=== PATIENT | female | born 1995 | race African-American/Black ===

== ENCOUNTER 2019-08-08 12:19 | Emergency (ER) | payer OTHER, SELFPAY ==
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
[2019-08-08 12:22] VITALS: BP 119/60; PULSE 90; RESP 20; TEMP 36.7; O2SAT 100
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
[2019-08-08] MEDS: KETOROLAC (*BKC) 60 MG/2 ML VIAL IM (13:07)
== END 2019-08-08 13:45 | disposition home or self-care (01) ==
PROVIDERS: Emergency Provider Emergency Medicine
DX: S16.1XXA Strain of muscle, fascia and tendon at neck level, initial encounter (principal); V49.40XA Driver injured in collision with unspecified motor vehicles in traffic accident, initial encounter
CPT/HCPCS: 72125; 96372; 99284; J1885

== ENCOUNTER 2019-10-23 21:24 | Emergency (ER) | payer SELFPAY ==
[2019-10-23 22:03] VITALS: BP 158/92; PULSE 92; RESP 20; TEMP 36.4; O2SAT 97
--- NOTE | 2019-10-24 00:02 | PC.NURSE ---
PT STATES TO THIS INTAKE NURSE THAT SHE IS LEAVING AND WILL JUST CALL HER DOCTOR IN THE MORNING. PT VISUALIZED AMBULATE OUT ED DOORS TO PARKING LOT WITH STEADY GAIT.
== END 2019-10-24 00:02 | disposition left against medical advice (07) ==
DX: N93.9 Abnormal uterine and vaginal bleeding, unspecified (principal)
CPT/HCPCS: 99199

== ENCOUNTER 2019-11-06 15:01 | Emergency (ER) | payer OTHER, SELFPAY ==
--- NOTE | ~2019-11-06 | US_ITS ---
EXAMINATION: US OB limited DATE: 11/06/2019 16:05 INDICATION: Vaginal bleeding during early second trimester of TECHNIQUE: Real-time ultrasound of the pelvis was performed. The interpreting radiologist was not pre sent for the study. COMPARISON: None. FINDINGS: There is a single living fetus in breech presentation. The placenta is anterior with 7 mm anechoic l ikely placental rick. There is a thickened heterogeneously hypoechoic region along the inferior abhi n of the placenta suspicious for subchorionic hematoma. heart rate is 142 beats per minute (bpm ). The amniotic fluid is subjectively normal. IMPRESSION: 1. Single living fetus in breech presentation with heart rate of 142 bpm. 2. Uterus along the inferior margin of the anterior placenta appears thickened and heterogeneously hy poechoic suspicious for subchorionic hematoma. Reviewed, dictated and finalized at location A. IMPRESSION: 1. Single living fetus in breech presentation with heart rate of 142 bpm. 2. Uterus along the inferior margin of the anterior placenta appears thickened and heterogeneously hypoechoic suspicious for subchorionic hematoma.
[2019-11-06 15:09] VITALS: BP 103/81; PULSE 78; RESP 20; TEMP 35.8; O2SAT 100
[2019-11-06 15:40] VITALS: BP 114/70; PULSE 72
[2019-11-06 15:42] VITALS: BP 127/86; PULSE 92
[2019-11-06 15:43] VITALS: BP 124/81; PULSE 103
--- NOTE | 2019-11-06 15:45 | PC.NURSE ---
Pt to US via w/c.
[2019-11-06 15:53] LABS: Basophils Percent Auto 0.2 % (0.2-1.2); Eosinophils Absolute Auto 0.3 K/mm3 (0-0.3); Eosinophils Percent Auto 1.6 % (0-4.4); Hematocrit 39.6 % (37.0-47.0); Hemoglobin 13.6 g/dL (12.0-15.0); Immature Granulocyte Absolute 0.06 K/mm3 (0.00-0.031); Immature Granulocyte Percent A 0.4 % (0-0.5); Lymphocytes Absolute Auto 2.49 K/mm3 (0.9-3.2); Lymphocytes Percent Auto 16.3 % (18.3-44.2); Mean Corpuscular HGB Conc 34.3 g/dl (32-36); Mean Corpuscular Hemoglobin 30.4 pg (26-34); Mean Corpuscular Volume 88.6 fl (80-100); Mean Platelet Volume 8.9 fl (7.4-10.4); Monocytes Absolute Auto 0.9 K/mm3 (0.1-0.6); Monocytes Percent Auto 5.8 % (2.6-8.5); Neutrophils Absolute Auto 11.5 K/mm3 (1.3-6.7); Neutrophils Percent Auto 75.7 % (45.5-73.1); Platelet Count Result 297 k/mm3 (150-375); Red Blood Count 4.47 M/mm3 (4.2-5.4); Red Cell Distribution Width 13.2 % (11.5-14.5); White Blood Count 15.3 K/mm3 (4.5-10.0)
[2019-11-06 15:54] LABS: Add Urine Microscopic? NO; Appearance Urine Clear (Clear); Bilirubin Urine Negative (Negative); Blood Urine Negative (Negative); Color Urine Straw (Yellow); Glucose Urine UA Negative (Negative); Ketones Urine Negative (Negative); Leukocyte Esterase Ur Negative LEU/UL (Negative); Nitrate Urine Negative (Negative); Protein Urine Negative (Negative); Urobilinogen Urine Negative mg/dL (<2.0)
--- NOTE | 2019-11-06 15:54 | ED.ABDPAIN ---
HPI - Abdominal Pain General Chief Complaint: OB/Uterine Contractions Stated Complaint: 14 weeks bleeding Time Seen by Provider: 11/06/19 15:14 Source: patient Mode of arrival: ambulatory Limitations: no limitations History of Present Illness HPI narrative: Patient is a 24-year-old female who presents to emergency department for evaluation of vaginal bleeding and cramping 14 weeks has had monthly ultrasounds the last of which was a week ago patient has also been having some cramping and bleeding throughout the with her specialist aware of this patient on arrival to emergency department notes that the bleeding has resolved but still has some mild cramps in the lower abdomen patient otherwise in no distress. Upon arrival resting comfortably in the room Related Data Home Medications Medication Instructions Recorded Confirmed PNV 119-iron fum-folic acid 1 tablet PO HS 10/23/19 [Se-Shiraz-19] aspirin 81 mg PO HS 10/23/19 progesterone micronized 200 mg PO HS 10/23/19 Allergies Allergy/AdvReac Type Severity Reaction Status Date / Time No Known Allergies Allergy Verified 11/06/19 15:12 Review of Systems Review of Systems: All systems reviewed & are unremarkable except as noted in HPI and below PMFSH Social History Social History (Updated 08/08/19 @ 12:47 by Bayron Maradiaga PA-C) Smoking status: Never smoker Gender identity (if verbalized by the patient): Female Exam Narrative: Exam Narrative: GENERAL: Well-appearing, well-nourished, and in no acute distress. HEAD: Normocephalic, atraumatic. EYES: PERRLA and EOMI. ENT: Nares clear, no rhinorrhea or epistaxis. Mucous membranes moist. CHEST: Clear to auscultation. No respiratory distress. No wheezes rales or rhonchi HEART: Regular rate and rhythm. No murmur heard. Normal peripheral pulses. ABDOMEN: Soft, nontender, nondistended EXTREMITIES: Normal range of motion. No edema. SKIN: Warm, dry, no rash. NEURO: No focal deficits. Alert and oriented x3. PSYCH: Normal mood and affect. Course Course Emergency Course: Patient in the room in no distress will be discharged home patient had evaluation with no high risk for concerning results at this time which have been consistent with her past work-ups discussion was made with gynecology wellness program administrator who will follow the patient in clinic Consultations Consultation #1: Discussed case with Dr. Mueller who recommends pelvic rest with patient being off work with follow-up in the clinic within the next week Date: 11/06/19 Time: 17:16 Vital Signs Vital signs: Vital Signs Temperature 96.5 F L 11/06/19 15:09 Pulse Rate 78 11/06/19 15:09 Respiratory Rate 11/06/19 15:09 Blood Pressure 103/81 11/06/19 15:09 Pulse Oximetry 100 11/06/19 15:09 Temperature 96.5 F L 11/06/19 15:09 Pulse Rate 103 H 11/06/19 15:43 Respiratory Rate 11/06/19 15:09 Blood Pressure 124/81 11/06/19 15:43 Pulse Oximetry 100 11/06/19 15:09 MDM - Abdominal Pain MDM Narrative Medical decision making narrative: Patient with abdominal cramping and will be discharged with follow-up with wellness program administrator aware of case findings treatment plan and diagnosis felt appropriate for outpatient reevaluation. Provided with reasons to return. Normal vital signs Lab Data Result diagrams: 11/06/19 15:39 11/06/19 15:39 Labs: Lab Results 11/06/19 11/06/19 11/06/19 Range/Units 15:39 15:39 15:39 WBC 15.3 H (4.5-10.0) K/mm3 RBC 4.47 (4.2-5.4) M/mm3 Hgb 13.6 (12.0-15.0) g/dL Hct 39.6 (37.0-47.0) % MCV 88.6 (80-100) fl MCH 30.4 (26-34) pg MCHC 34.3 (32-36) g/dl RDW 13.2 (11.5-14.5) % Plt Count 297 (150-375) k/mm3 MPV 8.9 (7.4-10.4) fl Immature Gran % (Auto) 0.4 (0-0.5) % Neut % (Auto) 75.7 H (45.5-73.1) % Lymph % (Auto) 16.3 L (18.3-44.2) % [place] % (Auto) 5.8 (2.6-8.5) % Eos % (Aut
[2019-11-06 16:01] LABS: Alanine Aminotransferase 19 U/L (4-35); Albumin Level 3.6 g/dL (3.5-5.1); Alkaline Phosphatase 109 U/L (38-126); Anion Gap 5 mmol/L (8-16); Aspartate Amino Transferase 20 U/L (14-36); Bilirubin,Total 0.2 mg/dL (0.2-1.3); Blood Urea Nitrogen 7 mg/dL (7-17); Calcium 9.6 mg/dL (8.4-10.2); Carbon Dioxide 28 mmol/L (22-30); Chloride 102 mmol/L (98-107); Estimated CRCL calculation 115 ml/min; Estimated Glomerular Filt Rate > 60; Glucose 84 mg/dL (65-105); Potassium 4.4 mmol/L (3.4-5.0); Sodium 135 mmol/L (137-145)
[2019-11-06] MEDS: SODIUM CHLORIDE 0.9% IV 1,000 ML 999 ML IV CONT (16:20)
== END 2019-11-06 18:20 | disposition home or self-care (01) ==
PROVIDERS: Emergency Medicine Emergency Medical Services; Emergency Provider Emergency Medicine; PCP Obstetrics & Gynecology
DX: O26.892 Other specified pregnancy related conditions, second trimester (principal); R10.9 Unspecified abdominal pain; Z79.82 Long term (current) use of aspirin; Z3A.14 14 weeks gestation of pregnancy
CPT/HCPCS: 36415; 76815; 80053; 81003; 84702; 85025; 85461; 96360; 96361; 99284; J7030

== ENCOUNTER 2021-01-04 18:26 | Emergency (ER) | payer OTHER, SELFPAY ==
[2021-01-04 18:37] VITALS: BP 131/71; PULSE 96; RESP 20; TEMP 36.9; O2SAT 99
[2021-01-04] MEDS: diphenhydrAMINE HCl INJ 50 MG/ML VIAL 25 MG IV PUSH (20:20)
[2021-01-04] MEDS: METOCLOPRAMIDE HCL INJ 10 MG/2 ML VIAL IV PUSH (20:20)
[2021-01-04] MEDS: SODIUM CHLORIDE 0.9% IV 1,000 ML 999 ML IV CONT (20:20)
[2021-01-04 20:30] LABS: Basophils Percent Auto 0.2 % (0.2-1.2); Eosinophils Absolute Auto 0.2 K/mm3 (0-0.3); Eosinophils Percent Auto 1.2 % (0-4.4); Hematocrit 41.1 % (37.0-47.0); Hemoglobin 13.7 g/dL (12.0-15.0); Immature Granulocyte Absolute 0.06 K/mm3 (0.00-0.031); Immature Granulocyte Percent A 0.3 % (0-0.5); Lymphocytes Absolute Auto 3.26 K/mm3 (0.9-3.2); Lymphocytes Percent Auto 17.4 % (18.3-44.2); Mean Corpuscular HGB Conc 33.3 g/dl (32-36); Mean Corpuscular Hemoglobin 29.8 pg (26-34); Mean Corpuscular Volume 89.3 fl (80-100); Mean Platelet Volume 8.5 fl (7.4-10.4); Monocytes Percent Auto 5.4 % (2.6-8.5); Neutrophils Absolute Auto 14.2 K/mm3 (1.3-6.7); Neutrophils Percent Auto 75.5 % (45.5-73.1); Platelet Count Result 349 k/mm3 (150-375); Red Cell Distribution Width 13.2 % (11.5-14.5); White Blood Count 18.7 K/mm3 (4.5-10.0)
[2021-01-04 20:35] LABS: Add Urine Microscopic? YES; Appearance Urine Cloudy (Clear); Bacteria Urine Trace /hpf; Bilirubin Urine Negative (Negative); Blood Urine Negative (Negative); Color Urine Yellow (Yellow); Glucose Urine UA Negative (Negative); Ketones Urine Negative (Negative); Leukocyte Esterase Ur 3+ LEU/UL (Negative); Mucus Urine Rare /lpf; Nitrate Urine Negative (Negative); Protein Urine Negative (Negative); Specific Grav Ur 1.017 (1.001-1.035); Squamous Epithelial Cell Urine Many /hpf (Few); Urobilinogen Urine Negative mg/dL (<2.0); WBC Urine 31-50 /hpf
[2021-01-04 20:41] LABS: Alanine Aminotransferase 31 U/L (4-35); Albumin Level 3.8 g/dL (3.5-5.1); Alkaline Phosphatase 70 U/L (38-126); Anion Gap 6 mmol/L (8-16); Aspartate Amino Transferase 26 U/L (14-36); Bilirubin,Total 0.3 mg/dL (0.2-1.3); Blood Urea Nitrogen 12 mg/dL (7-17); Calcium 9.1 mg/dL (8.4-10.2); Carbon Dioxide 26 mmol/L (22-30); Chloride 99 mmol/L (98-107); Estimated CRCL calculation 123 ml/min; Estimated Glomerular Filt Rate > 60; Glucose 94 mg/dL (65-110); Lipase 67 U/L (23-300); Potassium 4.5 mmol/L (3.4-5.0); Sodium 131 mmol/L (137-145)
--- NOTE | 2021-01-04 21:42 | ED.GENADULT ---
HPI - General Adult General Chief complaint: Nausea/Vomiting/Diarrhea Stated complaint: im , been throwing up Time Seen by Provider: 01/04/21 19:49 History of Present Illness HPI narrative: Patient a 25-year-old female presents the emergency department with chief complaint of nausea and vomiting. Patient reports she is about 7 weeks reports that she has seen an OB but her OB recently is no longer working for the group that he was working for and she is currently changing groups. Patient states she is currently not on any vitamins has no medications for nausea and has had nausea since the beginning of the . Related Data Home Medications Medication Instructions Recorded Confirmed PNV 119-iron fum-folic acid 1 tablet PO HS 10/23/19 [Se--19] aspirin 81 mg PO HS 10/23/19 progesterone micronized 200 mg PO HS 10/23/19 Allergies Allergy/AdvReac Type Severity Reaction Status Date / Time No Known Allergies Allergy Verified 11/06/19 15:12 Review of Systems Review of Systems: A 10 system review of systems was completed on the patient and is negative except for what is stated in the HPI. Nursing and ancillary documentation was reviewed. [facility] Social History Social History Smoking status: Never smoker Gender identity (if verbalized by the patient): Female Exam Narrative: GENERAL: Well-appearing, well-nourished, and in no acute distress. HEAD: Normocephalic, atraumatic. EYES: PERRLA and EOMI. ENT: Nares clear, no rhinorrhea or epistaxis. Mucous membranes moist. NECK: Supple. CHEST: Clear to auscultation. No respiratory distress. HEART: Regular rate and rhythm. No murmur heard. Normal peripheral pulses. ABDOMEN: Soft, nontender, nondistended, normal active bowel sounds. EXTREMITIES: Normal range of motion. No edema. SKIN: Warm, dry, no rash. NEURO: No focal deficits. Alert and oriented x3. PSYCH: Normal mood and affect. Course Course Emergency Course: Patient received IV fluids in the emergency department and is feeling much better at this time she is able to tolerate p.o. intake patient will be discharged home on a course of Reglan and also a course of Macrobid Vital Signs Vital signs: Vital Signs Temperature 36.9 C 01/04/21 18:37 Pulse Rate 96 01/04/21 18:37 Respiratory Rate 20 01/04/21 18:37 Blood Pressure 131/71 01/04/21 18:37 Pulse Oximetry 99 01/04/21 18:37 Temperature 36.9 C 01/04/21 18:37 Pulse Rate 96 01/04/21 18:37 Respiratory Rate 20 01/04/21 18:37 Blood Pressure 131/71 01/04/21 18:37 Pulse Oximetry 99 01/04/21 18:37 Medical Decision Making Vital Signs Vital Signs: Vital Signs Temperature 36.9 C 01/04/21 18:37 Pulse Rate 96 01/04/21 18:37 Respiratory Rate 20 01/04/21 18:37 Blood Pressure 131/71 01/04/21 18:37 Pulse Oximetry 99 01/04/21 18:37 Temperature 36.9 C 01/04/21 18:37 Pulse Rate 96 01/04/21 18:37 Respiratory Rate 20 01/04/21 18:37 Blood Pressure 131/71 01/04/21 18:37 Pulse Oximetry 99 01/04/21 18:37 Lab Data Result diagrams: 01/04/21 20:21 01/04/21 20:21 Labs: Lab Results 01/04/21 01/04/21 01/04/21 Range/Units 20:21 20:21 20:21 WBC 18.7 H (4.5-10.0) K/mm3 RBC 4.60 (4.2-5.4) M/mm3 Hgb 13.7 (12.0-15.0) g/dL Hct 41.1 (37.0-47.0) % MCV 89.3 (80-100) fl MCH 29.8 (26-34) pg MCHC 33.3 (32-36) g/dl RDW 13.2 (11.5-14.5) % Plt Count 349 (150-375) k/mm3 MPV 8.5 (7.4-10.4) fl Immature Gran % (Auto) 0.3 (0-0.5) % Neut % (Auto) 75.5 H (45.5-73.1) % Lymph % (Auto) 17.4 L (18.3-44.2) % [place] % (Auto) 5.4 (2.6-8.5) % Eos % (Auto) 1.2 (0-4.4) % Baso % (Auto) 0.2 (0.2-1.2) % Lymph # (Auto) 3.26 H (0.9-3.2) K/mm3 [place] # (Auto) 1.0 H (0.1-0.6) K/mm3 Eos # (Auto) 0.2 (0-0.3) K/mm3 Baso
[2021-01-04 22:18] VITALS: PULSE 79; RESP 16; O2SAT 100
== END 2021-01-04 22:19 | disposition home or self-care (01) ==
PROVIDERS: Emergency Provider Emergency Medicine
DX: O21.9 Vomiting of pregnancy, unspecified (principal); Z3A.01 Less than 8 weeks gestation of pregnancy
CPT/HCPCS: 36415; 80053; 81001; 83690; 85025; 87077; 87086; 87088; 87186; 96361; 96374; 96375; 99284; J1200; J2765; J7030

== ENCOUNTER 2021-01-07 12:32 | Outpatient (CLI) | payer OTHER, SELFPAY ==
--- NOTE | ~2021-01-07 | US_ITS ---
EXAMINATION: US OB <= 14 weeks fetus DATE: 01/07/2021 12:59 INDICATION: Encounter for supervision of normal . TECHNIQUE: Real-time transabdominal pelvic ultrasound was performed. COMPARISON: None. FINDINGS: The uterus measures 10.2 x 8.8 x 8.3 cm. There is an intrauterine gestational sac. A yolk sac is iden tified. The crown rump length measures 1.7 cm, which correlates with an estimated gestational age of 8 weeks and 1 day(s) (+/-) 5 day(s). heart motion is identified measuring 173 beats per minute (bpm) by M-mode Doppler. The ovaries are not visualized. There is no free fluid in the pelvis. IMPRESSION: 1. Single living intrauterine gestation with estimated date of delivery of 08/18/2021. Reviewed, dictated and finalized at location A. SLATOR INTERPRETER IMPRESSION: 1. Single living intrauterine gestation with estimated date of delivery of 08/07.
== END 2021-01-07 12:33 | disposition home or self-care (01) ==
LOC: ANHIMG 12:38
PROVIDERS: PCP Obstetrics & Gynecology
DX: Z34.91 Encounter for supervision of normal pregnancy, unspecified, first trimester (principal); Z3A.01 Less than 8 weeks gestation of pregnancy
CPT/HCPCS: 76801

== ENCOUNTER 2021-03-19 09:31 | Outpatient (CLI) | payer OTHER, SELFPAY ==
--- NOTE | ~2021-03-19 | US_ITS ---
EXAMINATION: US OB /maternal detail DATE: 03/19/2021 11:14 INDICATION: anatomic survey. TECHNIQUE: Real-time ultrasound of the pelvis was performed. COMPARISON: Ultrasound 01/07/2021 FINDINGS: There is a single living fetus in breech presentation. The placenta is anterior. heart rate is 161 beats per minute (bpm). The amniotic fluid index is 17.2 cm, which is normal. The following biometric data were obtained: Biparietal diameter (BPD): 4.3 cm; head circumference (HC): 15.9 cm; abdominal circumference (AC): 13 .8 cm; femur length (FL): 2.8 cm. These measurements are concordant. Estimated weight is 261 g +/- 39 g, which correlates with the 80th percentile when 08/18/21 is u sed as estimated date of delivery. As single measurements, these parameters are each equal to the following estimated gestational ages: BPD: 19 weeks 0 days. HC: 18 weeks 5 days. AC: 19 weeks 2 days. FL: 18 weeks 3 days. estimated gestational age based solely on measurements from this exam is 18 weeks 6 days +/- 1 weeks 2 days. The cerebral ventricles, cerebellum, cisterna magna, nuchal fold, and visualized portions of the spin e are normal. The heart is normal. The diaphragm, stomach, kidneys, and bladder are normal. There are two umbilical arteries to yield a 3-vessel cord. The cord insertion is normal. IMPRESSION: 1. Single living fetus in breech presentation. 2. Estimated weight is 261 g +/- 39 g, which correlates with the 80th percentile when 08/18/21 is used as estimated date of delivery. This date was set by ultrasound on 01/07/2021. 3. Normal anatomic survey. Reviewed, dictated and finalized at location E. FINISHER FORGING IMPRESSION: 1. Single living fetus in breech presentation. 2. Estimated weight is 261 g +/- 39 g, which correlates with the 80th pe rcentile when 08/18/21 is used as estimated date of delivery. This date was set by ultrasound on 01/07/2021. 3. Normal anatomic survey.
== END 2021-03-19 09:32 | disposition home or self-care (01) ==
LOC: ANHIMG 09:36
PROVIDERS: Visit Provider Obstetrics & Gynecology Gynecology
DX: Z36.9 Encounter for antenatal screening, unspecified (principal)
CPT/HCPCS: 76805

== ENCOUNTER 2021-05-24 02:25 | Observation (INO) | payer OTHER, SELFPAY ==
--- NOTE | 2021-05-24 02:25 | OBADM ---
This patient, Tomas Del Cid, admitted to the OB room OB Post 116 for observation. Patient/family oriented to hospital policies and general routines including ID bracelet, bed and alarms, visiting hours, pain management, procedures, bathroom and other care routines, personal items, smoking policy, room service/diet, and visiting hours. Patient/Family are encouraged to report perceived risks to care and to ask questions if they do not understand what they are told or what they should do.
[2021-05-24 02:45] VITALS: TEMP 36.6; BMI 37.6
[2021-05-24 02:47] VITALS: BP 145/116; PULSE 118
[2021-05-24 02:48] VITALS: BP 120/69; PULSE 98
[2021-05-24 04:15] LABS: Bilirubin Urine Negative (Negative); Color Urine Yellow (Yellow); Glucose Urine UA Negative (Negative); Ketones Urine 1+ mg/dL (Negative); Leukocyte Esterase Ur 1+ LEU/UL (NEGATIVE); Nitrate Urine Negative (Negative); Protein Urine Negative (Negative); Urobilinogen Urine 0.2 mg/dL (<2.0); pH Urine 6.5 (5.0-9.0)
[2021-05-24 04:17] LABS: Bacteria Urine Trace /hpf; Mucus Urine Rare /lpf; RBC Urine 0-2 /hpf (0-2); Squamous Epithelial Cell Urine Many /hpf (Few); WBC Urine 21-30 /hpf (0-3)
[2021-05-24 04:18] LABS: Add Urine Microscopic? YES; Appearance Urine Sl Cloudy (Clear); Blood Urine Trace-Intact (Negative)
--- NOTE | 2021-06-01 09:12 | PM.OBTRLD ---
OB - Triage/Final Diagnosis Visit Information Reason for evaluation: threatened labor and other (spotting) Comments/Additional reasons for admission: I have assessed the risk for this patient, Tomas Del Cid, and determined that she would benefit from observation care. Evaluation Laboratory results: Laboratory Tests 05/24/21 04:03 Urine Color Yellow Urine Appearance Sl cloudy Urine pH 6.5 Ur Specific [place] 1.020 Urine Protein Negative Urine Glucose (UA) Negative Urine Ketones 1+ H Ur Blood (Man) Trace-intact Urine Nitrate Negative Urine Bilirubin Negative Urine Urobilinogen 0.2 Ur Leukocyte Esterase 1+ H Urine RBC 0-2 Urine WBC 21-30 H Ur Squamous Epith Cells Many H Urine Bacteria Trace Urine Mucus Rare
== END 2021-05-24 04:44 | disposition home or self-care (01) ==
PROVIDERS: Admitting Provider Obstetrics & Gynecology Gynecology; Visit Provider Obstetrics & Gynecology Gynecology
DX: O47.02 False labor before 37 completed weeks of gestation, second trimester (principal); Z3A.27 27 weeks gestation of pregnancy
CPT/HCPCS: 81001; 87086; 87088; G0378; G0379

== ENCOUNTER 2021-06-19 17:47 | Observation (INO) | payer OTHER, SELFPAY ==
--- NOTE | 2021-06-19 17:53 | OBADM ---
This patient, Tomas Del Cid, admitted to the OB room OB Post 117 for observation. Patient/family oriented to hospital policies and general routines including ID bracelet, bed and alarms, visiting hours, pain management, procedures, bathroom and other care routines, personal items, smoking policy, room service/diet, and visiting hours. Patient/Family are encouraged to report perceived risks to care and to ask questions if they do not understand what they are told or what they should do.
--- NOTE | 2021-06-19 17:54 | PC.NURSE ---
1750- Spoke with Dr. Mueller, informed of patient presentation to unit after being told to come here as her labs and 24 hour urine came back and she is preeclamptic. Patient also states she has intermittent blurred vision. Pateint states she had her labs drawn at lab pranay yesterday and turned in a 24 [address] there. Informed Dr. Mueller of initial blood pressure of 125/75. Per Dr. Mueller, NST and send patient home with precautions and call office on Tuesday to be seen.
[2021-06-19 18:00] VITALS: BP 123/79; PULSE 103
[2021-06-19 18:15] VITALS: BP 119/75; PULSE 100
--- NOTE | 2021-06-23 16:36 | PM.OBTRLD ---
OB - Triage/Final Diagnosis Visit Information Reason for evaluation: threatened labor Comments/Additional reasons for admission: I have assessed the risk for this patient, Tomas Del Cid, and determined that she would benefit from observation care.
== END 2021-06-19 18:20 | disposition home or self-care (01) ==
PROVIDERS: Admitting Provider Obstetrics & Gynecology; Visit Provider Obstetrics & Gynecology
DX: O14.90 Unspecified pre-eclampsia, unspecified trimester (principal); Z3A.00 Weeks of gestation of pregnancy not specified
CPT/HCPCS: G0378; G0379

== ENCOUNTER 2021-07-21 14:51 | Inpatient (IN) | payer OTHER, SELFPAY ==
[2021-07-21] VITALS (100 sets, daily range): BP systolic 121–186; BP diastolic 66–118; PULSE 72–159; TEMP 36.6–37; O2SAT 98–100; BMI 40.0
--- NOTE | 2021-07-21 15:16 | LDADM ---
This patient, Tomas Del Cid, was admitted to Labor/Delivery/Recovery 107 on 07/21/21 at 14:51. Plans for labor, pain management and were discussed with patient. Patient/family oriented to hospital policies and general routines including ID bracelet, bed and alarms, visiting hours, pain management, procedures, bathroom and other care routines, personal items, smoking policy, room service/diet and guest tray routines, security routines, and visiting hours. Patient/Family are encouraged to report perceived risks to care and to ask questions if they do not understand what they are told or what they should do. See OBIX for further documentation.
[2021-07-21] MEDS: LACTATED RINGERS 1,000 ML 125 ML IV CONT (15:26)
[2021-07-21] MEDS: AMPICILLIN 2 GM/NS 100 ML 2 GM/100 ML BAG IVPB (15:27)
[2021-07-21 15:35] LABS: Basophils Absolute Auto 0.1 K/mm3 (0.0-0.1); Basophils Percent Auto 0.3 % (0.2-1.2); Eosinophils Absolute Auto 0.1 K/mm3 (0-0.3); Eosinophils Percent Auto 0.8 % (0-4.4); Hematocrit 33.5 % (37.0-47.0); Hemoglobin 10.7 g/dL (12.0-15.0); Immature Granulocyte Absolute 0.18 K/mm3 (0.00-0.031); Immature Granulocyte Percent A 1.2 % (0-0.5); Lymphocytes Absolute Auto 2.03 K/mm3 (0.9-3.2); Mean Corpuscular HGB Conc 31.9 g/dl (32-36); Mean Corpuscular Hemoglobin 27.1 pg (26-34); Mean Corpuscular Volume 84.8 fl (80-100); Mean Platelet Volume 9.6 fl (7.4-10.4); Monocytes Absolute Auto 1.1 K/mm3 (0.1-0.6); Monocytes Percent Auto 7.7 % (2.6-8.5); Platelet Count Result 280 k/mm3 (150-375); Red Blood Count 3.95 M/mm3 (4.2-5.4); Red Cell Distribution Width 14.7 % (11.5-14.5); White Blood Count 14.5 K/mm3 (4.5-10.0)
--- NOTE | 2021-07-21 16:20 | WPDANESEPPF ---
Anes - Initial Pre Proc Eval Date/Time: 07/21/21 16:20 Surgeon: Yue Baca MD Pre Op Diagnosis: Labor Patient Data Age: 25 Gender: F Height: 1.7 m Weight: 116 kg Last Vital Signs Pulse 86 07/21/21 16:16 BP 121/66 07/21/21 16:16 O2 Del Method Room Air 07/21/21 15:14 Allergies Allergy/AdvReac Type Severity Reaction Status Date / Time No Known Allergies Allergy Verified 11/06/19 15:12 Home Medications Medication Instructions Recorded Confirmed Type ergocalciferol (vitamin D2) 1,250 1,250 mcg PO WEEKLY 06/19/21 07/21/21 History mcg (50,000 unit) capsule ferrous sulfate 325 mg (65 mg 325 mg PO DAILY 06/19/21 07/21/21 History iron) tablet (FeroSul) vit no.95-ferrous 1 tablet PO DAILY 07/20/21 07/21/21 History fumarate 28 mg-folic acid 800 mcg tablet () Laboratory Tests 07/21/21 07/21/21 07/21/21 15:12 15:12 15:12 WBC 14.5 K/mm3 H K/mm3 (4.5-10.0) RBC 3.95 M/mm3 L M/mm3 (4.2-5.4) Hgb 10.7 g/dL L D g/dL (12.0-15.0) Hct 33.5 % L % (37.0-47.0) MCV 84.8 fl fl (80-100) MCH 27.1 pg pg (26-34) MCHC 31.9 g/dl L g/dl (32-36) RDW 14.7 % H % (11.5-14.5) Plt Count 280 k/mm3 k/mm3 (150-375) MPV 9.6 fl fl (7.4-10.4) Immature Gran % (Auto) 1.2 % H % (0-0.5) Neut % (Auto) 76.0 % H % (45.5-73.1) Lymph % (Auto) 14.0 % L % (18.3-44.2) [place] % (Auto) 7.7 % % (2.6-8.5) Eos % (Auto) 0.8 % % (0-4.4) Baso % (Auto) 0.3 % % (0.2-1.2) Lymph # (Auto) 2.03 K/mm3 K/mm3 (0.9-3.2) [place] # (Auto) 1.1 K/mm3 H K/mm3 (0.1-0.6) Eos # (Auto) 0.1 K/mm3 K/mm3 (0-0.3) Baso # (Auto) 0.1 K/mm3 K/mm3 (0.0-0.1) Abs Immat Gran (auto) 0.18 K/mm3 H K/mm3 (0.00-0.031) Absolute Neuts (auto) 11.0 K/mm3 H K/mm3 (1.3-6.7) Absolute Nucleated RBC 0.0 K/mm3 K/mm3 (0.0-0.012) Nucleated RBC % 0.0 % % (0.0-0.2) RPR Pending HIV 1&2 Ab/P24 Ag 4thGn Pending Patient hx anesthesia problems: none Family hx anesthesia problems: none Results Review: All pre-operative results and documents have been reviewed as part of the pre-operative evaluation. [facility] Family History Family History (Updated 07/20/21 @ 15:24 by Gretchen Lee RN) Other No pertinent family history Social History Social History Smoking status: Never smoker Substance use: never Gender identity (if verbalized by the patient): Female Spiritual care concerns: No Anes - Eval Final PreProcedure Day of Procedure 07/21/21 16:20 Patient weight: morbidly obese Heart: regular rate and rhythm Lungs: clear to auscultation and normal air movement Airway: Mallampati scale class II Neurological: alert and oriented Last oral intake: >/= 8 hours ASA classification: III Emergent: no Anesthetic plan: proceed Anesthesia type and monitoring: regional epidural Results Review: All pre-operative results and documents have been reviewed as part of the pre-operative evaluation. Informed Consent: The patient's anesthetic plan and its attendant risks and benefits were discussed with the patient/family/POA. Questions were solicited and answers provided to the satisfaction of the patient/family/POA.
[2021-07-21 16:30] LABS: HIV 1/2 Ab P24 Ag Result Negative (Negative)
[2021-07-21 17:40] LABS: Glucose Point of Care 78 mg/dl (65-105)
[2021-07-21 17:40] LABS: Glucose Point of Care 70 mg/dl (65-105)
[2021-07-21] MEDS: OXYTOCIN 30 UNITS/NS 500 ML 30 UNITS/500 ML BAG IV CONT (18:50)
[2021-07-21 19:35] LABS: Glucose Point of Care 87 mg/dl (65-105)
[2021-07-21] MEDS: AMPICILLIN 1 GM/NS 50 ML 1 GM/50 ML BAG IVPB (19:35)
[2021-07-21 19:50] LABS: Uric Acid 5.7 mg/dL (2.5-7.5)
[2021-07-21 20:17] LABS: Alanine Aminotransferase 15 U/L (6-35); Anion Gap 1 mmol/L (8-16); Aspartate Amino Transferase 19 U/L (14-36); Bilirubin,Total 0.1 mg/dL (0.2-1.3); Blood Urea Nitrogen 6 mg/dL (7-17); Calcium 8.5 mg/dL (8.4-10.2); Carbon Dioxide 26 mmol/L (22-30); Chloride 107 mmol/L (98-107); Estimated CRCL calculation 141 ml/min; Estimated Glomerular Filt Rate > 60; Glucose 88 mg/dL (65-110); Potassium 4.2 mmol/L (3.4-5.0); Sodium 134 mmol/L (137-145)
[2021-07-21 20:40] LABS: Alkaline Phosphatase 1752 U/L (38-126)
--- NOTE | 2021-07-21 21:25 | PM.OBPRVD ---
OB - Delivery Note Procedure Delivery date: 07/21/21 Procedure: Events: Other ( labor) Delivery augmentation: Rupture of Membranes Delivery monitor: External FHT and External Uterine Route of delivery: Laceration Description: Periurethral (deep on left with bleeding from artery) and Perineal - 1st Degree Delivery repair: vicryl (3-0 vicryl) Specimen: Yes (placenta) Quantitative Blood Loss (ml): 600 Anesthesia type: Epidural Disposition: Floor [place] Baby Date of : 07/21/21 Weeks of gestation at delivery: 36 gender: Male Weight (pounds): 6 Weight (ounces): 12 presentation: vertex position: Right Occiput Anterior Placenta delivery description: Spontaneous Cord Vessel Description: 3 Vessels score one minute: 8 score five minutes: 9
--- NOTE | 2021-07-21 21:31 | PM.OBDSVD ---
DS: Admitting Diagnosis Discharge Date 07/23/21 Admitting Diagnosis IUP 36 wks in labor with advanced dilation DS: Discharge Diagnosis Discharge Diagnosis (1) (normal spontaneous vaginal delivery): Code(s): O80 - Encounter for full-term uncomplicated delivery Status: Acute (2) delivery: Code(s): O60.10X0 - labor with delivery, unspecified trimester, not applicable or unspecified Status: Acute (3) 36 weeks gestation of : Code(s): Z3A.36 - 36 weeks gestation of Status: Acute OB - DS: Summary OB Procedures : Ultrasound OB Procedures Intrapartum: Spontaneous Vag Delivery OB Procedures: : None Peripartum Data Infant Delivery Method: Natural Vaginal Laceration Description: Periurethral and Perineal - 1st Degree complications: none Status at Discharge Functional status at discharge: independent ambulation Overall status at discharge: patient is progressing back to baseline Time Spent with Patient Time attestation: Total time spent providing and/or coordinating discharge services: DS: Data Data Completed and Pending Pending studies at discharge: Pending at discharge 07/21/21 21:17 Surgical [PTH] Routine Labs on day of discharge: Labs from last 24 hours 07/21/21 07/21/21 07/21/21 19:31 19:24 19:24 WBC RBC Hgb Hct MCV MCH MCHC RDW Plt Count MPV Immature Gran % (Auto) Neut % (Auto) Lymph % (Auto) Day % (Auto) Eos % (Auto) Baso % (Auto) Lymph # (Auto) Day # (Auto) Eos # (Auto) Baso # (Auto) Abs Immat Gran (auto) Absolute Neuts (auto) Absolute Nucleated RBC Nucleated RBC % Sodium 134 L Potassium 4.2 Chloride 107 Carbon Dioxide 26 Anion Gap 1 L BUN 6 L D Creatinine 0.70 Estim Creat Clear Calc 141 Estimated GFR > 60 Glucose 88 POC Capillary Glucose 87 Uric Acid 5.7 Calcium 8.5 Total Bilirubin 0.1 L AST 19 ALT 15 Alkaline Phosphatase 1752 H Total Protein 7.0 Albumin 3.0 L RPR HIV 1&2 Ab/P24 Ag 4thGn Blood Type Antibody Screen 07/21/21 07/21/21 07/21/21 17:37 15:28 15:12 WBC RBC Hgb Hct MCV MCH MCHC RDW Plt Count MPV Immature Gran % (Auto) Neut % (Auto) Lymph % (Auto) Day % (Auto) Eos % (Auto) Baso % (Auto) Lymph # (Auto) Day # (Auto) Eos # (Auto) Baso # (Auto) Abs Immat Gran (auto) Absolute Neuts (auto) Absolute Nucleated RBC Nucleated RBC % Sodium Potassium Chloride Carbon Dioxide Anion Gap BUN Creatinine Estim Creat Clear Calc Estimated GFR Glucose POC Capillary Glucose 70 78 Uric Acid Calcium Total Bilirubin AST ALT Alkaline Phosphatase Total Protein Albumin RPR HIV 1&2 Ab/P24 Ag 4thGn Blood Type A Positive Antibody Screen Negative 07/21/21 07/21/21 07/21/21 15:12 15:12 15:12 WBC 14.5 H RBC 3.95 L Hgb 10.7 L D Hct 33.5 L MCV 84.8 MCH 27.1 MCHC 31.9 L RDW 14.7 H Plt Count 280 MPV 9.6 Immature Gran % (Auto) 1.2 H Neut % (Auto) 76.0 H Lymph % (Auto) 14.0 L Day % (Auto) 7.7 Eos % (Auto) 0.8 Baso % (Auto) 0.3 Lymph # (Auto) 2.03 Day # (Auto) 1.1 H Eos # (Auto) 0.1 Baso # (Auto) 0.1 Abs Immat Gran (auto) 0.18 H Absolute Neuts (auto) 11.0 H Absolute Nucleated RBC 0.0 Nucleated RBC % 0.0 Sodium Potassium Chloride Carbon Dioxide Anion Gap BUN Creatinine Estim Creat Clear Calc Estimated GFR Glucose POC Capillary Glucose Uric Acid Calcium Total Bilirubin AST ALT Alkaline Phosphatase Total Protein Albumin RPR Pending HIV 1&2 Ab/P24 Ag 4thGn Negative Blood Type Antibody Screen Discharge
[2021-07-21] MEDS: OXYTOCIN 30 UNITS/NS 500 ML 30 UNITS/500 ML BAG 125 UNITS IV CONT (21:43)
[2021-07-22] MEDS: WITCH HAZEL 40 PADS 1 PAD TOPICAL (00:01)
[2021-07-22] MEDS: BENZOCAINE 20% AER SPR (*SP) 56 GM CAN 1 SPRAY TOPICAL (00:01)
[2021-07-22 00:20] VITALS: BP 143/92; PULSE 96; RESP 16; TEMP 36.8
[2021-07-22] MEDS: IBUPROFEN 600 MG TABLET PO ×4 (00:59→22:28)
[2021-07-22 05:21] LABS: Hematocrit 27.6 % (37.0-47.0); Hemoglobin 8.8 g/dL (12.0-15.0)
--- NOTE | 2021-07-22 07:43 | PM.OBPNVD ---
OB - PN: Subj Subjective Date/time seen: 07/22/21 07:43 Patient comments: no complaints, pain well controlled and other (no PIH sx; no RUQ tenderness) [place] baby status: doing well OB - PN: Obj Data Labs CBC & Chem 7: 07/22/21 04:14 07/21/21 19:24 Labs: Laboratory Results - last 24 hr 07/21/21 07/21/21 07/21/21 15:12 15:12 15:12 WBC 14.5 H RBC 3.95 L Hgb 10.7 L D Hct 33.5 L MCV 84.8 MCH 27.1 MCHC 31.9 L RDW 14.7 H Plt Count 280 MPV 9.6 Immature Gran % (Auto) 1.2 H Neut % (Auto) 76.0 H Lymph % (Auto) 14.0 L [place] % (Auto) 7.7 Eos % (Auto) 0.8 Baso % (Auto) 0.3 Lymph # (Auto) 2.03 [place] # (Auto) 1.1 H Eos # (Auto) 0.1 Baso # (Auto) 0.1 Abs Immat Gran (auto) 0.18 H Absolute Neuts (auto) 11.0 H Absolute Nucleated RBC 0.0 Nucleated RBC % 0.0 Sodium Potassium Chloride Carbon Dioxide Anion Gap BUN Creatinine Estim Creat Clear Calc Estimated GFR Glucose POC Capillary Glucose Uric Acid Calcium Total Bilirubin AST ALT Alkaline Phosphatase Total Protein Albumin HIV 1&2 Ab/P24 Ag 4thGn Negative Blood Type A Positive Antibody Screen Negative 07/21/21 07/21/21 07/21/21 15:28 17:37 19:24 WBC RBC Hgb Hct MCV MCH MCHC RDW Plt Count MPV Immature Gran % (Auto) Neut % (Auto) Lymph % (Auto) [place] % (Auto) Eos % (Auto) Baso % (Auto) Lymph # (Auto) [place] # (Auto) Eos # (Auto) Baso # (Auto) Abs Immat Gran (auto) Absolute Neuts (auto) Absolute Nucleated RBC Nucleated RBC % Sodium Potassium Chloride Carbon Dioxide Anion Gap BUN Creatinine Estim Creat Clear Calc Estimated GFR Glucose POC Capillary Glucose 78 70 Uric Acid 5.7 Calcium Total Bilirubin AST ALT Alkaline Phosphatase Total Protein Albumin HIV 1&2 Ab/P24 Ag 4thGn Blood Type Antibody Screen 07/21/21 07/21/21 07/22/21 19:24 19:31 04:14 WBC RBC Hgb 8.8 L Hct 27.6 L MCV MCH MCHC RDW Plt Count MPV Immature Gran % (Auto) Neut % (Auto) Lymph % (Auto) [place] % (Auto) Eos % (Auto) Baso % (Auto) Lymph # (Auto) [place] # (Auto) Eos # (Auto) Baso # (Auto) Abs Immat Gran (auto) Absolute Neuts (auto) Absolute Nucleated RBC Nucleated RBC % Sodium 134 L Potassium 4.2 Chloride 107 Carbon Dioxide 26 Anion Gap 1 L BUN 6 L D Creatinine 0.70 Estim Creat Clear Calc 141 Estimated GFR > 60 Glucose 88 POC Capillary Glucose 87 Uric Acid Calcium 8.5 Total Bilirubin 0.1 L AST 19 ALT 15 Alkaline Phosphatase 1752 H Total Protein 7.0 Albumin 3.0 L HIV 1&2 Ab/P24 Ag 4thGn Blood Type Antibody Screen OB - PN A/P Plan day: 1 Plan: routine care Comments: Alk Phos sig elevated. No sx and normal LFT's. Will follow up pp. Time Spent With Patient Time: Total time spent is greater than 50% in coordination of care (as documented) at patient's floor/unit and/or counseling patient: Exam Narrative: RUQ nt : Bimanual exam- vagina & uterus: other (Uterus firm, nt @U)
[2021-07-22 08:15] VITALS: BP 124/76; PULSE 83; RESP 16; TEMP 36.8; O2SAT 100
[2021-07-22] MEDS: MULTIVIT/MIN/PREN/FOL AC/IRON TABLET 1 TAB PO (08:21)
[2021-07-22] MEDS: DOCUSATE SODIUM 100 MG CAPSULE PO ×2 (08:21→16:38)
[2021-07-22] MEDS: POLYSACCHARIDE IRON COMPLEX 150 MG CAPSULE PO ×2 (08:21→16:38)
--- NOTE | 2021-07-22 08:35 | WPDANLDPN2 ---
Anes-Prog Note L&D Date/Time: 07/22/21 08:35 Comfortable throughout: labor and delivery Neuraxial method: epidural Epidural/Spinal procedure site: clean & non-tender Neuro status: Neuro function grossly intact. Cardiovascular status: normal Respiratory status: normal Airway patency: baseline Mental status: baseline Post-Op hydration status: normal Vital Signs: Last Vital Signs Temp 36.8 C 07/22/21 00:20 Pulse 96 07/22/21 00:20 Resp 16 07/22/21 00:20 BP 143/92 H 07/22/21 00:20 Pulse Ox 100 07/21/21 21:04 O2 Del Method Room Air 07/21/21 15:14 Pain score (VAS): 3 I/O: Intake & Output 07/21/21 07/22/21 07/22/21 23:59 07:59 15:59 Intake Total 500 Output Total 648 Balance 500 -648 Post-procedural complaints: none Patient feedback: Patient satisfied with anesthetic care.
--- NOTE | 2021-07-22 12:00 | PC.NURSE ---
Breast pump provided due to maternal preference. Instructions given on cleaning, care, usage, there should be no pain, pumping schedule for milk production, collection, and storage of human milk. Parents are encouraged to record pumping schedule on the feeding sheet. Patient was assessed for correct placement, flange size, to pump for comfort and nipple stretching/stimulation for adequate milk production. Mother voiced understanding of the education shared.
[2021-07-22] MEDS: ACETAMINOPHEN 325 MG TABLET 650 MG PO ×2 (12:11→22:28)
[2021-07-22 12:49] LABS: Rapid Plasma Reagin Non-Reactive (NonReactive)
[2021-07-22 12:50] VITALS: BP 117/70; PULSE 92; RESP 18; TEMP 36.7; O2SAT 94
--- NOTE | 2021-07-22 14:33 | PC.NURSE ---
1330 - Primary RN reported mother has chosen to pump and feed.
[2021-07-22 15:15] VITALS: BP 133/87; PULSE 83; RESP 16; TEMP 36.9; O2SAT 99
[2021-07-22 19:30] VITALS: BP 122/79; PULSE 89; RESP 16; TEMP 36.7; O2SAT 100
[2021-07-23 07:30] VITALS: BP 138/90; PULSE 82; RESP 18; TEMP 36.9; O2SAT 96
[2021-07-23] MEDS: POLYSACCHARIDE IRON COMPLEX 150 MG CAPSULE PO (08:43)
[2021-07-23] MEDS: MULTIVIT/MIN/PREN/FOL AC/IRON TABLET 1 TAB PO (08:43)
[2021-07-23] MEDS: DOCUSATE SODIUM 100 MG CAPSULE PO (08:43)
--- NOTE | 2021-07-23 10:56 | PM.OBPNVD ---
OB - PN: Subj Subjective Date/time seen: 07/23/21 10:56 Patient comments: no complaints and pain well controlled baby status: doing well OB - PN: Obj Data Labs CBC & Chem 7: 07/22/21 04:14 07/21/21 19:24 Labs: Laboratory Results - last 24 hr 07/21/21 15:12 RPR Non-reactive OB - PN A/P Plan day: 2 Plan: routine care, discharge home, follow up 6 weeks and other (plans IUD Liletta) Time Spent With Patient Time: Total time spent is greater than 50% in coordination of care (as documented) at patient's floor/unit and/or counseling patient: Exam : Bimanual exam- vagina & uterus: other (Uterus firm, nt @U)
[2021-07-24 09:37] VITALS: BP 131/81; PULSE 85; RESP 18; TEMP 37; O2SAT 100
== END 2021-07-23 12:55 | disposition home or self-care (01) | DRG 560 ==
LOC: ANHLDR 21:33 → ANHOB2 07-22 00:18
PROVIDERS: Admitting Provider Obstetrics & Gynecology Gynecology; Visit Provider Obstetrics & Gynecology Gynecology
DX: O60.14X0 Preterm labor third trimester with preterm delivery third trimester, not applicable or unspecified (principal); Z37.0 Single live birth; Z3A.36 36 weeks gestation of pregnancy; O24.429 Gestational diabetes mellitus in childbirth, unspecified control; O13.4 Gestational [pregnancy-induced] hypertension without significant proteinuria, complicating childbirth; O70.0 First degree perineal laceration during delivery; O71.82 Other specified trauma to perineum and vulva
CPT/HCPCS: 36415; 80053; 82948; 84550; 85014; 85018; 85025; 86592; 86703; 86850; 86900; 86901; 88307; A9270; G0432; J0290; J2590; J2795; J7120